=== PATIENT | female | born 1975 | race Caucasian/White ===

== ENCOUNTER 2023-12-06 07:39 | Inpatient (IN) ==
[~2023-12-06 07:39] MED LIST: Ertapenem 1 GM in NS 0.9% 50 ML BAG IVPB SCH; Naloxone 0.4 mg VIAL 0.4 mg/ml 1 ml VIAL IV PRN; fentaNYL 100 mcg/2 ml 50 MCG/ML VIAL IV PRN
[2023-12-06 08:21] LABS: Rapid COVID-19 Molecular Undetected (Undetected)
[2023-12-06 08:48] LABS: Hematocrit 40.2 % (35-45); Hemoglobin 13.7 g/dL (11.5-14.3); Mean Corpuscular Hemoglobin 31.8 pg (27-33); Mean Corpuscular Hgb Conc 34.1 g/dL (31-36); Mean Corpuscular Volume 93.3 fL (80-97); Mean Platelet Volume 7.9 fL (7.5-11.2); Platelet Count 261 10^3/uL (150-450); White Blood Count 6.2 10^3/uL (3.8-11.8)
[2023-12-06] MEDS ORDERED: Rocuronium 50 mg VIAL 10 mg/ml 5 ml VIAL (50 mg) ONE ×3 (09:36→15:33)
[2023-12-06] MEDS ORDERED: Ondansetron 4 mg VIAL 2 MG/ML 2 ml VIAL ONE ×2 (09:36→17:59)
[2023-12-06] MEDS ORDERED: Dexamethasone IV 4 MG/ML VIAL 1 ml VIAL ONE ×2 (09:36→16:13)
[2023-12-06] MEDS ORDERED: Dexmedetomidine 200 mcg/2 ml 2 ml VIAL (200 mcg) ONE (09:36)
[2023-12-06] MEDS ORDERED: Propofol 10 MG/ML 20 ML BTL ONE (09:36)
[2023-12-06] MEDS ORDERED: fentaNYL 250 mcg/5 ml 50 MCG/ML 5 ml VIAL (250 MCG) ONE (09:37)
[2023-12-06] MEDS ORDERED: Midazolam 2 mg/2 ml VIAL 1 mg/ml 2 ml VIAL (2 mg) ONE (09:37)
[2023-12-06] MEDS ORDERED: Bupivacaine 0.25% EPI 200,000 30 ML SDV ONE (11:04)
[2023-12-06] MEDS ORDERED: HYDROmorphone 0.5 MG/0.5 ML SYRINGE ONE (14:25)
[2023-12-06] MEDS ORDERED: ROPIVACAINE 5 MG/ML 30 ML BTL (0.5%) ONE ×2 (16:10)
[2023-12-06] MEDS ORDERED: HYDROmorphone 0.5 MG/0.5 ML SYRINGE IV SLOW PU PRN (16:47)
[2023-12-06] MEDS: Ondansetron 4 mg VIAL 2 MG/ML 2 ml VIAL IV PRN ×2 (18:00→22:47)
[2023-12-06] MEDS: Buffered Lidocaine 1% SYRIN 1 ml INTRADERM ONE (19:39)
[2023-12-06] MEDS: Acetaminophen IV 1 GM/100ML 1,000 MG/100 ML BAG IV SCH (19:39)
[2023-12-06] MEDS: Lactated Ringers 1000 ml BAG 1,000 ML IV SCH (19:40)
[2023-12-06] MEDS: HYDROmorphone 0.5 MG/0.5 ML SYRINGE IV SLOW PU PRN (19:55)
[2023-12-06] MEDS: Lactated Ringers 1000 ml BAG 1,000 ML IV ONE (20:03)
[2023-12-07 06:10] LABS: ABS Lymphocytes 0.7 10^3/uL (1.0-4.8); ABS Monocytes 1.1 10^3/uL (0.0-0.9); ABS Neutrophils 15.8 10^3/uL (1.5-7.6); ABS Nucleated RBC 0.01 10^3/ul; Hematocrit 38.8 % (35-45); Hemoglobin 13.2 g/dL (11.5-14.3); Lymphocyte % 4.1 %; Mean Corpuscular Hemoglobin 31.9 pg (27-33); Mean Corpuscular Hgb Conc 34.1 g/dL (31-36); Mean Corpuscular Volume 93.7 fL (80-97); Platelet Count 251 10^3/uL (150-450); Red Blood Count 4.14 10^6/uL (3.63-4.92); Red Cell Distribution Width 12.9 % (12-17); White Blood Count 17.6 10^3/uL (3.8-11.8)
[2023-12-07 06:50] LABS: Albumin 3.7 g/dL (3.2-5.2); Albumin/Globulin Ratio 1.9 (1-3); Calcium 8.8 mg/dL (8.6-10.3); Creatinine, Serum 0.78 mg/dL (0.51-0.95); Potassium 3.8 mmol/L (3.5-5.0); Total Bilirubin 0.4 mg/dL (0.2-1.0); Total Protein 5.7 g/dL (6.4-8.9); eGFR CKD-EPI 93.1 (>60)
[2023-12-07] MEDS: Enoxaparin 40 MG/0.4 ML SYR SUBCUT SCH (09:30)
[2023-12-07] MEDS: D5W 1/2 NS KCl 20 meq 1000 ml 1,000 ML IV SCH ×2 (10:54→23:15)
[2023-12-08 07:09] LABS: ABS Lymphocytes 0.7 10^3/uL (1.0-4.8); Hematocrit 35.9 % (35-45); Hemoglobin 12.5 g/dL (11.5-14.3); Lymphocyte % 4.9 %; Mean Corpuscular Hemoglobin 32.3 pg (27-33); Mean Corpuscular Volume 92.3 fL (80-97); Mean Platelet Volume 8.2 fL (7.5-11.2); Platelet Count 215 10^3/uL (150-450); Red Blood Count 3.89 10^6/uL (3.63-4.92); Red Cell Distribution Width 13.1 % (12-17); White Blood Count 14.7 10^3/uL (3.8-11.8)
[2023-12-08 07:35] LABS: Calcium 8.2 mg/dL (8.6-10.3); Creatinine, Serum 0.61 mg/dL (0.51-0.95); Potassium 3.8 mmol/L (3.5-5.0); eGFR CKD-EPI 109.5 (>60)
[2023-12-08] MEDS: AMETHYST PO SCH (10:40)
[2023-12-08] MEDS ORDERED: LEVONORGESTREL ETHINYL ESTRAD PO SCH (14:37)
[2023-12-08] MEDS: ETHIN ESTRADIOL PO SCH (15:03)
[2023-12-08] MEDS: LEVONORGESTREL PO SCH (15:03)
[2023-12-08] MEDS: Calcium Carb (TUMS) 500 mg CHEW TAB PO PRN (23:41)
[2023-12-08] MEDS: Pantoprazole VIAL 40 MG VIAL IV ONE (23:42)
[2023-12-09] MEDS: Metoclopramide 5 MG/ML VIAL (10 mg) IV SLOW PU PRN (15:13)
[2023-12-10 11:27] VITALS: BP 135/96
== END 2023-12-10 12:30 | disposition home or self-care (01) | DRG 376 ==
LOC: MCHOB 07:39 → AA 08:53 → SSU 16:43
PROVIDERS: ADMIT Surgery; ATTEND Surgery